=== PATIENT | male | born 1940 | race Caucasian/White ===

== ENCOUNTER 2022-10-04 12:48 | Inpatient (IN) ==
[2022-10-04] MEDS ORDERED: methylPREDNISolone SOD SUCC 125 mg 2 ML VIAL IV ONE (12:59)
[2022-10-04] MEDS ORDERED: Albuterol HFA INHALER 8 gm MDI INH ONE (12:59)
[2022-10-04 13:31] LABS: ABS Lymphocytes 0.1 10^3/ul (1.0-4.8); ABS Monocytes 0.3 10^3/ul (0-0.8); ABS Neutrophils 8.7 10^3/ul (1.5-7.7); Eosinophil % 0.1 %; Hematocrit 41 % (42-52); Hemoglobin 13.3 g/dL (14.0-18.0); Lymphocyte % 1.2 %; Mean Corpuscular HGB Conc 32 g/dL (31-36); Mean Corpuscular Hemoglobin 29 pg (27-31); Mean Corpuscular Volume 91 fL (80-94); Mean Platelet Volume 10.3 fL (7.4-10.4); Platelet Count 108 10^3/uL (150-450); Red Blood Count 4.53 10^6 /uL (4.18-5.48); Red Cell Distribution Width 15 % (10-15); White Blood Count 9.1 10^3/uL (3.5-10.8)
[2022-10-04 14:47] LABS: Albumin 2.8 g/dL (3.2-5.2); Albumin/Globulin Ratio 1.1 (1-3); Calcium 8.7 mg/dL (8.6-10.3); Globulin 2.5 g/dL (2-4); Potassium 4.6 mmol/L (3.5-5.0); Total Bilirubin 0.7 mg/dL (0.2-1.0); Total Protein 5.3 g/dL (6.4-8.9); eGFR CKD-EPI 32.5 (>60)
[2022-10-04 15:55] LABS: Urine Appearance Turbid; Urine Bilirubin Negative (Negative); Urine Blood 1+ (Negative); Urine Color Amber; Urine Glucose Negative (Negative); Urine Ketones Negative (Negative); Urine Nitrite Negative (Negative); Urine Protein 1+(30 mg/dL) (Negative); Urine Specific Gravity 1.017 (1.002-1.030); Urine Urobilinogen Negative (Negative)
[2022-10-04] MEDS ORDERED: Lactated Ringers 1000 ml BAG 1,000 ML IV ONE (15:57)
[2022-10-04 16:04] LABS: Urine Bacteria 1+ (Absent); Urine Red Blood Cell 1+(3-5/hpf) (Absent); Urine Squamous Epithelial Cell Present (Absent); Urine White Blood Cell 3+(>20/hpf) (Absent)
[2022-10-04] MEDS ORDERED: Budesonide NEB 0.5 MG/2 ML NEB.SOLN INH PRN (17:51)
[2022-10-04] MEDS ORDERED: fentaNYL 100 mcg/2 ml 50 MCG/ML VIAL IV SLOW PU PRN (18:23)
[2022-10-04] MEDS ORDERED: NS 0.9% IV ONE (18:24)
[2022-10-04 18:45] LABS: TSH Ultra Thyroid Stim Horm 0.85 mcIU/mL (0.34-5.60)
[2022-10-04 18:47] LABS: Free T4 1.15 ng/dL (0.61-1.12)
[2022-10-04] MEDS ORDERED: Lactated Ringers 1000 ml BAG 1,000 ML IV SCH (19:00)
[2022-10-04] MEDS: Azithromycin 500 mg/250 ml NS 500 MG/250 ML BAG IVPB SCH (19:43)
[2022-10-04] MEDS: Polyethylene Glycol 3350 17 GM PACKET PO SCH (19:45)
[2022-10-04] MEDS ORDERED: Glycopyrrolate/Formoterol (NF) MDI INH SCH (21:00)
[2022-10-05] MEDS ORDERED: Haloperidol 5 mg/ml SDV IV/IM 5 MG/ML AMP IM ONE (02:37)
[2022-10-05] MEDS: Albuterol HFA INHALER 8 gm MDI INH PRN ×2 (05:37→19:50)
[2022-10-05] MEDS ORDERED: Morphine 2 MG/ML SYRINGE IV ONE (05:38)
[2022-10-05] MEDS ORDERED: Morphine 2 MG/ML SYRINGE ONE (05:39)
[2022-10-05] MEDS ORDERED: methylPREDNISolone SOD SUCC 125 mg 2 ML VIAL IV ONE (05:39)
[2022-10-05 07:51] LABS: Hematocrit 39 % (42-52); Hemoglobin 12.2 g/dL (14.0-18.0); Mean Corpuscular HGB Conc 32 g/dL (31-36); Mean Corpuscular Hemoglobin 29 pg (27-31); Mean Corpuscular Volume 91 fL (80-94); Red Blood Count 4.24 10^6 /uL (4.18-5.48); Red Cell Distribution Width 15 % (10-15); White Blood Count 23.1 10^3/uL (3.5-10.8)
[2022-10-05] MEDS: Cholecalciferol (VIT D3) 1,000 unit TAB PO SCH (08:46)
[2022-10-05] MEDS: Tiotropium Brom/Olodaterol MDI INH SCH (08:46)
[2022-10-05] MEDS: Polyethylene Glycol 3350 17 GM PACKET PO SCH ×2 (08:49→22:11)
[2022-10-05 09:04] LABS: Calcium 8.6 mg/dL (8.6-10.3); Magnesium 2.2 mg/dL (1.9-2.7); eGFR CKD-EPI 30.5 (>60)
[2022-10-05 09:11] LABS: Potassium 5.1 mmol/L (3.5-5.0)
[2022-10-05 11:10] LABS: ABS Eosinophils 0.2 10^3/ul (0-0.6); ABS Lymphocytes 0.1 10^3/ul (1.0-4.8); ABS Monocytes 0.1 10^3/ul (0-0.8); ABS Neutrophils 22.7 10^3/ul (1.5-7.7); Eosinophil % 0.7 %; Lymphocyte % 0.2 %; Mean Platelet Volume 10.6 fL (7.4-10.4); Platelet Count 91 10^3/uL (150-450)
[2022-10-05] MEDS: cefTRIAXone 1 gm/50 mL D5W 1 GM/50 ML BAG IV SCH (14:16)
[2022-10-05] MEDS ORDERED: NS 0.9% 1000 ml BAG 1,000 ML IV SCH (16:30)
[2022-10-05] MEDS: Azithromycin 500 mg/250 ml NS 500 MG/250 ML BAG IVPB SCH (21:13)
[2022-10-06] MEDS: Albuterol HFA INHALER 8 gm MDI INH PRN ×2 (04:45→19:06)
[2022-10-06] MEDS ORDERED: Albuterol/Ipratropium NEB.SOL (2.5/0.5 MG) 3 ML NEB.SOLN INH ONE ×3 (05:32→06:30)
[2022-10-06] MEDS ORDERED: Albuterol 2.5mg/3 ml (0.083%) NEB.SOLN INH ONE (05:34)
[2022-10-06] MEDS ORDERED: Albuterol/Ipratropium NEB.SOL (2.5/0.5 MG) 3 ML NEB.SOLN ONE (05:36)
[2022-10-06] MEDS ORDERED: methylPREDNISolone SOD SUCC 40 mg/ml 1 ml VIAL IV SCH (06:00)
[2022-10-06 06:46] LABS: PCO2 Arterial 56 mmHg (35-45); PO2 Arterial 122 mmHg (80-100)
[2022-10-06] MEDS ORDERED: Morphine 2 MG/ML SYRINGE IV ONE (07:01)
[2022-10-06 07:09] LABS: Hematocrit 40 % (42-52); Hemoglobin 12.7 g/dL (14.0-18.0); Mean Corpuscular HGB Conc 32 g/dL (31-36); Mean Corpuscular Hemoglobin 29 pg (27-31); Mean Corpuscular Volume 92 fL (80-94); Red Blood Count 4.35 10^6 /uL (4.18-5.48); Red Cell Distribution Width 15 % (10-15)
[2022-10-06 07:27] LABS: Calcium 8.5 mg/dL (8.6-10.3); Magnesium 2.1 mg/dL (1.9-2.7); Potassium 4.7 mmol/L (3.5-5.0); eGFR CKD-EPI 26.4 (>60)
[2022-10-06] MEDS: Tiotropium Brom/Olodaterol MDI INH SCH (08:15)
[2022-10-06] MEDS: Polyethylene Glycol 3350 17 GM PACKET PO SCH ×2 (08:21→22:24)
[2022-10-06] MEDS: Cholecalciferol (VIT D3) 1,000 unit TAB PO SCH (08:28)
[2022-10-06] MEDS ORDERED: NS 0.9% 500 ml BAG 500 ML IV ONE ×3 (11:34→17:52)
[2022-10-06 11:49] LABS: ABS Lymphocytes 0.1 10^3/ul (1.0-4.8); ABS Neutrophils 16.9 10^3/ul (1.5-7.7); Eosinophil % 0.1 %; Giant Platelets Present; Lymphocyte % 0.3 %; Mean Platelet Volume 10.7 fL (7.4-10.4); Platelet Count 49 10^3/uL (150-450)
[2022-10-06 11:55] LABS: PCO2 Arterial 60 mmHg (35-45); PO2 Arterial 66 mmHg (80-100)
[2022-10-06] MEDS: cefTRIAXone 1 gm/50 mL D5W 1 GM/50 ML BAG IV SCH (16:23)
[2022-10-06] MEDS: methylPREDNISolone SOD SUCC 40 mg/ml 1 ml VIAL IV SCH (18:02)
[2022-10-06] MEDS ORDERED: Albuterol/Ipratropium NEB.SOL (2.5/0.5 MG) 3 ML NEB.SOLN INH PRN (20:24)
[2022-10-06] MEDS: Azithromycin 500 mg/250 ml NS 500 MG/250 ML BAG IVPB SCH (20:27)
[2022-10-07] MEDS ORDERED: Albuterol/Ipratropium NEB.SOL (2.5/0.5 MG) 3 ML NEB.SOLN ONE (05:18)
[2022-10-07] MEDS: methylPREDNISolone SOD SUCC 40 mg/ml 1 ml VIAL IV SCH (05:45)
[2022-10-07 06:43] LABS: Hematocrit 38 % (42-52); Mean Corpuscular HGB Conc 32 g/dL (31-36); Mean Corpuscular Hemoglobin 29 pg (27-31); Mean Corpuscular Volume 92 fL (80-94); Mean Platelet Volume 9.7 fL (7.4-10.4); Platelet Count 19 10^3/uL (150-450); Red Cell Distribution Width 16 % (10-15); White Blood Count 35.4 10^3/uL (3.5-10.8)
[2022-10-07 07:18] LABS: Calcium 8.1 mg/dL (8.6-10.3); Magnesium 2.2 mg/dL (1.9-2.7); Potassium 4.7 mmol/L (3.5-5.0); eGFR CKD-EPI 26.4 (>60)
[2022-10-07] MEDS: Tiotropium Brom/Olodaterol MDI INH SCH (07:21)
[2022-10-07 08:23] LABS: ABS Basophils 0.1 10^3/ul (0-0.2); ABS Lymphocytes 0.1 10^3/ul (1.0-4.8); ABS Monocytes 0.2 10^3/ul (0-0.8); Lymphocyte % 0.3 %
[2022-10-07 08:55] LABS: ABS Lymphocytes 0.1 10^3/ul (1.0-4.8); ABS Monocytes 0.2 10^3/ul (0-0.8); ABS Neutrophils 31.9 10^3/ul (1.5-7.7); Hematocrit 36 % (42-52); Hemoglobin 11.3 g/dL (14.0-18.0); Lymphocyte % 0.2 %; Mean Corpuscular HGB Conc 31 g/dL (31-36); Mean Corpuscular Hemoglobin 28 pg (27-31); Mean Corpuscular Volume 91 fL (80-94); Mean Platelet Volume 9.4 fL (7.4-10.4); Platelet Count 18 10^3/uL (150-450); Red Blood Count 3.98 10^6 /uL (4.18-5.48); Red Cell Distribution Width 16 % (10-15); White Blood Count 32.2 10^3/uL (3.5-10.8)
[2022-10-07] MEDS ORDERED: Heparin 5000 UNITS/ML 1 mL VIAL SUBCUT SCH (09:00)
[2022-10-07] MEDS: Polyethylene Glycol 3350 17 GM PACKET PO SCH (09:06)
[2022-10-07] MEDS: Cholecalciferol (VIT D3) 1,000 unit TAB PO SCH (09:07)
[2022-10-07 10:04] LABS: Activated Partial Thrombo Time 26.2 seconds (26.0-38.0); INR 1.39 (0.89-1.11)
[2022-10-07 11:37] LABS: Hepatitis C Antibody Negative (Negative)
[2022-10-07 11:47] LABS: Albumin 2.6 g/dL (3.2-5.2); Albumin/Globulin Ratio 1.2 (1-3); Globulin 2.2 g/dL (2-4); Total Bilirubin 0.5 mg/dL (0.2-1.0); Total Protein 4.8 g/dL (6.4-8.9)
[2022-10-07] MEDS ORDERED: Vancomycin per Pharmacy 1 EA NOTE FOLLOW UP SCH (12:00)
[2022-10-07] MEDS ORDERED: Vancomycin 1,000 MG in NS 0.9% 250 ml 250 ML IVPB ONE (12:00)
[2022-10-07 12:01] VITALS: BP 111/49
[2022-10-07] MEDS: cefTRIAXone 1 gm/50 mL D5W 1 GM/50 ML BAG IV SCH (12:26)
[2022-10-07] MEDS ORDERED: Ondansetron ODT 4 mg TAB 4 MG TAB SL PRN (13:14)
[2022-10-07] MEDS ORDERED: Atropine 1% (ORAL/SL) 15 ML BTL SL PRN (13:14)
[2022-10-07] MEDS ORDERED: Morphine ORAL CONCENTRATE 5 MG/0.25 ML ORAL.SYRIN PO PRN (13:14)
[2022-10-07] MEDS ORDERED: Scopolamine 1 mg/72hr PATCH TRANSDERM SCH (14:00)
[2022-10-11 16:45] LABS: HIT ELISA 0.177 OD (<0.400); Heparin PF4 Antibody Interp Negative (Negative)
== END 2022-10-07 15:15 | disposition hospice, home (50) | DRG 871 ==
LOC: EDHOLD 12:48 → ED 12:48 → MEDTELE 10-05 14:47
PROVIDERS: ADMIT Internal Medicine; ATTEND Internal Medicine